=== PATIENT | male | born 1960 | race Caucasian/White ===

== ENCOUNTER 2017-03-03 13:39 | Inpatient (IN) | payer OTHER ==
[~2017-03-03] VITALS: Ht 177.8 cm; Wt 70.4 kg
--- NOTE | 2017-03-03 14:30 | NUR ---
PT VERBALLY CONSENTED TO PHOTOS. PHOTOS TAKEN OF FRONT OF LEGS/HIPS W/ GENITALIA COVERED & OF BACK OF LEGS/BUTTOCKS.
--- NOTE | 2017-03-03 14:48 | NUR ---
PT TO ED FOR EVAL OF RASH TO BILAT LOWER EXTREMITES. SEE SKIN NOTE FOR DESCRITPION OF RASH. PT AWAKE AND ALERT. BREATHING EVEN UNLABORED. STATES RASH STARTED APPROX 3 DAYS AGO WITH "PIMPLES" TO BILAT UPPER THIGH AREAS WITH PAIN TO KNEES. PAIN AND SWELLING GREATER TO L KNEE THAN RIGHTL. PT USES CANE TO WALK PT DENIES FEVERS, NAUSEA, VOMITING OR RECENT ILLNESS. PT PLACED IN ISOLATION. PLACED ON CARDIAC MONITORS. MSE COMPLETED BY DR. BANG.
[2017-03-03 15:15] LABS: PLATELET COUNT 215 x10^3mcL (130-400); RED CELL DISTRIBUTION WIDTH 12.2 % (11.5-14.5)
[2017-03-03 15:16] LABS: BASOPHIL % 0 % (0-2)
--- NOTE | 2017-03-03 15:23 | NUR ---
NON BLANCHABLE RED GALE NOTED STARTING FROM HIPS DOWNS TO BILATERAL LOWER EXTREMITIES. PT DENIES ANY NUCHAL RIGIDITY. NO HYPOTENSION NOTED.
[2017-03-03 15:36] LABS: CALCIUM 8.9 mg/dL (8.5-10.1); CARBON DIOXIDE 27.4 mmol/L (21-32); CHLORIDE SERUM 100 mmol/L (98-107); CREATININE SERUM 0.7 mg/dL (0.7-1.3); GFR1 > 60 mL/min; GLUCOSE SERUM 90 mg/dL (74-106); POTASSIUM SERUM 3.9 mmol/L (3.5-5.1); SODIUM SERUM 137 mmol/L (136-145)
[2017-03-03 15:52] LABS: T3 TOTAL 0.88 ng/mL
--- NOTE | 2017-03-03 15:55 | NUR ---
PT SIGNED CONSENT FOR LUMBAR PUNTURE AND PLACED IN CHART.
[2017-03-03 16:00] LABS: ALBUMIN 3.5 g/dL (3.4-5.0); ALKALINE PHOSPHATASE 94 U/L (46-116); ALT/SGPT 43 U/L (16-63); AST/SGOT 65 U/L (15-37); BILIRUBIN TOTAL 1.86 mg/dL (0.20-1.00); TOTAL PROTEIN, SERUM 7.5 g/dL (6.4-8.2)
--- NOTE | 2017-03-03 16:10 | NUR ---
DR. BANG AT BEDSIDE FOR LUMBAR PUNCTURE.
[2017-03-03 16:20] LABS: ERYTHROCYTE SED RATE 23 mm/hr (0-20)
--- NOTE | 2017-03-03 16:36 | NUR ---
CSF SENT TO LAB, AND FLUID COLLECTED FROM LEFT KNEE TAP (ABOUT 2ML) SENT TO LAB.
[2017-03-03 16:45] LABS: APPEARANCE CSF CLEAR; COLOR CSF COLORLESS; RBC CSF 1 /cumm (0); WBC CSF 0 /cumm (0-5)
[2017-03-03 16:48] LABS: APPEARANCE CSF CLEAR; COLOR CSF COLORLESS; RBC CSF 1 /cumm (0); WBC CSF 0 /cumm (0-5)
[2017-03-03 17:02] LABS: TOTAL PROTEIN CSF 25.7 mg/dL (15-45)
[2017-03-03 17:18] LABS: CK-MB < 0.5 ng/mL (0-3.6); CREATINE KINASE 64 U/L (39-308)
--- NOTE | 2017-03-03 17:23 | NUR ---
REPIORT CALLED TO YESENIA POWELL,. SHE WILL ASSUME CARE PRIMARY RN POST TRANSFER.
[2017-03-03 17:27] LABS: FREE T4 1.08 ng/dL (0.76-1.46); FREE THYROXINE INDEX 2.1 ug/dL (1.4-4.5); T4(THYROXINE) 6.7 ug/dL (4.7-13.3)
[2017-03-03 17:32] LABS: microscopic required? NO
[2017-03-03 17:40] LABS: urine erythrocyte NEGATIVE (NEGATIVE)
[2017-03-03 17:59] LABS: MAGNESIUM 1.9 mg/dL (1.8-2.4)
[2017-03-03 18:01] LABS: CHOLESTEROL/HDL RATIO 2.4
[2017-03-03 18:07] LABS: AMPHETAMINE QUAL UR NONE DETECTED (NEG <=1000)
--- NOTE | 2017-03-03 18:25 | NUR ---
RECEIVED PT RESTING IN BED WITH PRIMARY RN AT BEDSIDE. PT AAOX4 WITH C/O BLE/RT KNEE PAIN 04/06. VS DONE AND MONITOR APPLIED. IVF TO LFA RESUMED BY PRIMARY RN. BREATH SOUNDS CLEAR BILATERALLY. ABDOMEN SOFT WITH ACTIVE BOWEL SOUNDS. PULSES PRESENT WITH 2+ EDEMA TO BLE WITH PETECHIAE PURPLE FLAT RASH NOTED TO BLE. CALL LIGHT WITHIN REACH.
--- NOTE | 2017-03-03 18:38 | NUR ---
AT 1820 - RECEIVED PATIENT FROM ER NURSE. SETTLED IN ROOM, ORIENTED TO SURROUNDINGS AND PLACED ON CARDIAC MONITORING. ADMITTED WITH DX OF SEPSIS, BLE RASH R/O MENINGOCOCCAL. PATIENT IS AWAKE, ALERT AND ORIENTED TO PERSON, PALCE, TIME AND SITUATION. CONVERSING APPROPRIATELLY. RESPIRATIONS REGULAR. AFEBRILE. HISTORY OBTAINED FROM PATIENT. AT 1830 - IV INFUSION OF NS COMMENCED AT 126 ML/HR. PATIENT IS ON DROPLET ISOLATION. CALL LIGHT WITHIN REACH.
[2017-03-03 18:53] VITALS: BP 112/64
[2017-03-03 19:08] VITALS: Ht 177.8 cm; Wt 70.4 kg
--- NOTE | 2017-03-03 20:00 | NUR ---
PT AAO X4 VERBAL C/O OF BLE PAIN 6/10 PER ASSESSMENT, NO DISTRESS LUNGS CTA SATURATING 96% RA, ST IN THE MONITOR NO CP OR PRESSURE TELE # 19, IVF NS INFUSING @ 126CC/HR IV ACCESS @ LFA PATENT NON INFIL, PT REFUSED TO WEAR SCD'S AT THIS TIME, INFORMED BENEFITS OF SCD'S, BLE WITH SCATTERED RASHES DENIES ITCHING ON AIRBORNE ISOL PREC R/O MENINGOCOCCAL DROPLET, DENIES HEADACHE OR DIZZINESS NO NAUSEA OR VOMITING, SHIFT ASSESSMENT INITIATED, ATTENDED NEEDS CALL LIGHT AT REACH, UPDATED CURRENT TX PLAN, CONT TO MONITOR AND PROCEED TO CURRENT PLAN OF CARE.
--- NOTE | 2017-03-03 20:24 | NUR ---
CALLED DR ROSA ASKING FOR DIET ORDER, PT STATED THAT HE DIDNT EAT FOR 2 DAYS MD WILL TALK TO THE RESIDENT FIRST AWAITING FOR ORDERS.
[2017-03-03 20:30] VITALS: BP 138/93
--- NOTE | 2017-03-03 23:00 | NUR ---
PT HAS NEW ORDER FOR ATIVAN PO, REFUSED TO TAKE AT THIS TIME HE WILL CALL LATER IF HE NEEDS IT.
[2017-03-04] VITALS (7 sets, daily range): BP systolic 91–125; BP diastolic 48–79
--- NOTE | 2017-03-04 00:35 | NUR ---
PT WANTED TO TAKE HIS ATIVAN NOW, MEDS GIVEN INDICATED, PT STATED THAT SHE'S TAKING ATIVAN BEFORE BUT HE STOP IT BECAUSE IT MAKES HIM DIZZY BUT HE WILL TRY IT AGAIN TODAY FOR ANXIETY, CONT TO MONITOR.
[2017-03-04 05:37] LABS: BASOPHIL % 0.3 % (0-2); PLATELET COUNT 159 x10^3mcL (130-400)
[2017-03-04 05:48] LABS: CALCIUM 7.9 mg/dL (8.5-10.1); CARBON DIOXIDE 27.7 mmol/L (21-32); CHLORIDE SERUM 107 mmol/L (98-107); CREATININE SERUM 0.5 mg/dL (0.7-1.3); GFR1 > 60 mL/min; GLUCOSE SERUM 82 mg/dL (74-106); MAGNESIUM 1.9 mg/dL (1.8-2.4); PHOSPHOROUS 3.1 mg/dL (2.5-4.9); POTASSIUM SERUM 3.7 mmol/L (3.5-5.1); SODIUM SERUM 140 mmol/L (136-145)
--- NOTE | 2017-03-04 06:39 | NUR ---
BLE STILL WITH PURPLISH RED FLAT RASHES, DENIES ITCHING, NO C/O SOB NOR DISTRESS, IVF INFUSING WELL DUE MEDS GIVEN, PT NPO FOR ORDERED U/S, CONT TO MONITOR.
--- NOTE | 2017-03-04 07:44 | NUR ---
RECEIVED SLEEPING BUT AROUSABLE, IN NO ACUTE RESP. DISTRESS. VS WNL. IVF INFUSING WELL AND SITE CLEAR. NO C/O PAIN OR DISCOMFORT AT THIS TIME. CALL LIGHT WITHIN REACH. WILL CONTINUE W/PLAN OF CARE.
--- NOTE | 2017-03-04 08:18 | NUR ---
PT C/O KNEE PAIN, MEDICATED WITH MORPHINE IVP PER ORDER.
--- NOTE | 2017-03-04 13:31 | NUR ---
DR. SKELTON IN TO PERFORM SKIN BIOPSY. EXPLAINED THE PROCEDURE TO PT, QUESTIONS AND CONCERNS ADRRESSED. PT SIGNED CONSENT. GETTING READY FOR PROCEDURE.
--- NOTE | 2017-03-04 13:41 | NUR ---
BIOPSY OF THE SKIN RASH TO LT INNER THIGH COMPLETED. PT TOLERATED WELL, SAMPLE TO BE SENT TO LAB. SKIN SITE WITH SUTURE INTACT, COVERED WITH NON ATHERENT BANDAID. PT IN NO DISTRESS, DENIES PAIN OR DISCOMFORT AT THIS TIME. VSS.WILL CONTINUE TO MONITOR.
--- NOTE | 2017-03-04 19:30 | NUR ---
PT IS ALERT AND ORIENTED.PLEASANT AND COOPERATIVE.CLEAR LUNG ON AUSCULTATIONS BILATERALLY UPPER AND LOWER BASES.02SAT 97%. AMBULATES WITH CANE. STILL HAS IV NS AT 126 ML PER HOUR INFUSING WELL IN THE LEFT FOREARM. ANTOHER HEPLOCK IV IN THE RIGHT FOREARM. STILL GETTING SOLUMEDROL FOR THE RED RASHES BOTH LOWER EXTREMITIES. GETTING ATIVAN 1MG PO. WELL MONITOR.
--- NOTE | 2017-03-04 19:35 | NUR ---
PT REMAINS IN NO DISTRESS. AWAKE, ALERT AND ORIENTED. VS STABLE, NO C/O PAIN OR DISCOMFORT AT THIS TIME. IVF INFUSING WELL AND SITE CLEAR. CALL LIGHT WITHIN REACH. WILL BE ENSORED TO INCOMING SHIFT.
--- NOTE | 2017-03-05 06:20 | NUR ---
PT IS RESTING. NOTED LAST NIGHT HE BECAME RESTLESS AND DEMAND THAT HE WILL BE FREE FROM IV BECAUSE IT ON HIS WAY AND BECAME TROUBLED WITH IT. PT ALSO VERBALIZED THAT HE HAD A BAD DREAM. AND THAT HIS HOUSE IS JUST NEAR HIS BED. NOTED THAT SHE IS TAKING ATIVAN PO FOR ETOH PROTOCOL. STILL HAS IV NS AT 75 ML PER HOUR. WILL GIVE REPORT TO DAY SHIFT RN.
[2017-03-05 06:23] VITALS: BP 107/67
[2017-03-05 06:43] LABS: CALCIUM 8.6 mg/dL (8.5-10.1); CARBON DIOXIDE 29.3 mmol/L (21-32); CHLORIDE SERUM 106 mmol/L (98-107); CREATININE SERUM 0.6 mg/dL (0.7-1.3); GFR1 > 60 mL/min; GLUCOSE SERUM 102 mg/dL (74-106); MAGNESIUM 1.8 mg/dL (1.8-2.4); PHOSPHOROUS 2.9 mg/dL (2.5-4.9); POTASSIUM SERUM 3.6 mmol/L (3.5-5.1); SODIUM SERUM 143 mmol/L (136-145)
[2017-03-05 06:59] LABS: BASOPHIL % 0.1 % (0-2); PLATELET COUNT 187 x10^3mcL (130-400)
--- NOTE | 2017-03-05 07:32 | NUR ---
RECEIVED SLEEPY BUT AROUSABLE, NO RESP. DISTRESS NOTED. NO C/O PAIN OR DISCOMFORT. IVF INFUSING WELL AND SITE CLEAR. CALL LIGHT WITHIN REACH. WILL CONTINUE W/PLAN OF CARE.
[2017-03-05 09:04] VITALS: BP 112/70
[2017-03-05 09:36] LABS: RAPID PLASMA REAGIN Non Reactive (Non Reactive)
[2017-03-05 13:24] VITALS: BP 116/69
[2017-03-05 17:01] VITALS: BP 116/72
--- NOTE | 2017-03-05 17:06 | NUR ---
TELE DC'D PER ORDER. PT IN NO DISTRESS, WALKING AROUND IN ROOM. DENIES PAIN OR DISCOMFORT.
--- NOTE | 2017-03-05 18:36 | NUR ---
PT REMAINS IN NO DISTRESS, AWAKE AND ALERT. SITTING AT THE EDGE OF THE BED. NO C/O PAIN OR DISCOMFORT AT THIS TIME. HL PATENT. CALL LIGHT REMAINS WITHIN REACH. WILL BE ENDORSED TO INCOMING SHIFT.
--- NOTE | 2017-03-05 19:30 | NUR ---
PT IS ALERT AND ORIENTED. PLEASANT AND COOPERATIVE. LUNGS CLEAR ON AUSCULTATIONS BILATERALLY. PT HAS HEPLOCK IV ON THE RIGHT AND LEFT FOREARM. NO MORE IV FLUIDS. STILL HAS ALL THE RASHES OVER HIS LEGS, THIGHS. PELVIC AREAS. ITS NOT ITCHING AND NO C/O PAIN. BIOPSY WAS DONE YESTERDAY. BOWEL SOUNDS ACTIVE AND PRESENT. AMBULATORY WITH CANE, WILL MONITOR.
--- NOTE | 2017-03-05 21:27 | NUR ---
PT WAS HALLUCINATING VERY BAD, SEEING BAT IN THE CEILING. DR. CEVALLOS MADE AWARE AND MEDICATED WITH ATIVAN 1MG PO.WILL MONITOR.
[2017-03-05 21:31] VITALS: BP 113/67
--- NOTE | 2017-03-06 04:29 | NUR ---
AFTER TAKING THE ATIVAN LAST NIGHT, THE PT WAS ABLE TO SLEEP. NOTED HE WAS NOT SEEING THINGS IN THE ROOM ANYMORE. WILL CONTINUE TO MONITOR.
[2017-03-06 05:10] VITALS: BP 119/70
[2017-03-06 06:37] LABS: BASOPHIL % 0.3 % (0-2); PLATELET COUNT 187 x10^3mcL (130-400); RED CELL DISTRIBUTION WIDTH 12.3 % (11.5-14.5)
[2017-03-06 07:09] LABS: CALCIUM 8.3 mg/dL (8.5-10.1); CARBON DIOXIDE 29.5 mmol/L (21-32); CHLORIDE SERUM 109 mmol/L (98-107); CREATININE SERUM 0.6 mg/dL (0.7-1.3); GFR1 > 60 mL/min; GLUCOSE SERUM 99 mg/dL (74-106); MAGNESIUM 1.7 mg/dL (1.8-2.4); POTASSIUM SERUM 3.2 mmol/L (3.5-5.1); SODIUM SERUM 146 mmol/L (136-145)
--- NOTE | 2017-03-06 08:00 | NUR ---
ASSESMENT MADE PT AOX4 HR WNL CIRCULATION WNL RR EVEN AND UNLABORED BOWEL SOUND ACTIVE PT AMBULATES WITH CANE, CONTINENT, SKIN LOWER HALF HAS RED RASH, PT DENIES PAIN AT THE MOMENT IV PATENT AND INTACT CALL LIGHT WITH IN REACH WILL CONTINUE TO MONITOR FOR CHANGES
--- NOTE | 2017-03-06 08:16 | NUR ---
AM ROUNDS DONE BY DR. GARCIA AND MEDICAL TEAM. PLAN TO CONT. WITH CURRENT TX. POSSIBLE DC THIS PM. PT AGREED WITH PLAN.
[2017-03-06] MEDS ORDERED: PREDNISONE50 MG PO (14:46)
[2017-03-06] MEDS ORDERED: FOL1 PO (14:48)
[2017-03-06] MEDS ORDERED: THERA TABS1 TAB PO (14:49)
[2017-03-06] MEDS ORDERED: THI100 PO (14:49)
[2017-03-06] MEDS ORDERED: ATIVAN1 MG PO (14:50)
[2017-03-06 15:14] VITALS: BP 119/70
--- NOTE | 2017-03-06 15:36 | NUR ---
PT WILL BE DC'D HOME THIS PM, ECHO IN PROGRESS. WAITING FOR FAMILY
--- NOTE | 2017-03-06 18:03 | NUR ---
PT DC'D HOME IN NO DISTRESS, AWAKE, ALERT AND ORIENTED. NO CHANGES IN VS. HL REMOVED AND SITE CLEAR. DC INSTRUCTIONS REVIEWED WITH PT AND FAMILY. RX GIVEN. PT DENIES PAIN OR DISCOMFORT AT THE TIME OF DC. PERSONAL BELONGINGS TAKEN HOME.
== END 2017-03-06 17:41 | disposition home or self-care (01) | DRG 607 ==
LOC: ED 13:39 → DU 16:53 → MU 03-05 15:30
PROVIDERS: Family Medicine; Specialist; ADMIT Family Medicine
PROC: 009U3ZX Drainage of Spinal Canal, Percutaneous Approach, Diagnostic (ICD-10-PCS; principal; 2017-03-03)
PROC: 0S9D3ZZ Drainage of Left Knee Joint, Percutaneous Approach (ICD-10-PCS; 2017-03-03)
PROC: 0HBJXZX Excision of Left Upper Leg Skin, External Approach, Diagnostic (ICD-10-PCS; 2017-03-04)
DX: L95.8 Other vasculitis limited to the skin (principal); B19.10 Unspecified viral hepatitis B without hepatic coma; E87.6 Hypokalemia; E83.42 Hypomagnesemia; F10.10 Alcohol abuse, uncomplicated; I77.6 Arteritis, unspecified; Z68.24 Body mass index [BMI] 24.0-24.9, adult
CPT/HCPCS: 36600; 80307; 83880; 84439; 86788; 86789; 87804; G0480; J0133; J1885; J2001; J2270; J2405; J2543; J2930; J3010; J7030; Q0092

== ENCOUNTER 2017-09-10 22:45 | Emergency (ER) | payer OTHER, MEDICAID ==
[~2017-09-10] VITALS: Ht 175.3 cm; Wt 74.8 kg
[~2017-09-10 22:45] MED LIST: ATIVAN1 MG PO; FOL1 PO; PREDNISONE50 MG PO; THERA TABS1 TAB PO; THI100 PO
[2017-09-11 00:23] VITALS: BP 129/110
== END 2017-09-11 00:23 | disposition home or self-care (01) ==
LOC: ED 22:45
DX: S01.112A Laceration without foreign body of left eyelid and periocular area, initial encounter (principal); Y08.89XA Assault by other specified means, initial encounter; Y93.89 Activity, other specified; Y99.8 Other external cause status; Y92.89 Other specified places as the place of occurrence of the external cause

== ENCOUNTER → 2018-02-08 | Outpatient (CLI) | payer OTHER | END | disposition home or self-care (01) | LOC: US 14:14 | PROC: B54DZZZ Ultrasonography of Bilateral Lower Extremity Veins (ICD-10-PCS; principal; 2018-02-08) | PROC: B44HZZZ Ultrasonography of Bilateral Lower Extremity Arteries (ICD-10-PCS; 2018-02-08) | DX: I87.8 Other specified disorders of veins (principal) | CPT/HCPCS: Q0092 ==

== ENCOUNTER 2018-02-09 21:14 | Emergency (ER) | payer OTHER ==
[~2018-02-09] VITALS: Ht 170.2 cm; Wt 73.9 kg
[2018-02-09 21:23] VITALS: Ht 170.2 cm; Wt 73.9 kg
[2018-02-09 22:19] LABS: BASOPHIL % 0.6 % (0-2); PLATELET COUNT 172 x10^3mcL (130-400); RED CELL DISTRIBUTION WIDTH 13.2 % (11.5-14.5)
[2018-02-09 22:22] LABS: CALCIUM 8.5 mg/dL (8.5-10.1); CARBON DIOXIDE 24.6 mmol/L (21-32); CHLORIDE SERUM 98 mmol/L (98-107); CREATININE SERUM 0.6 mg/dL (0.7-1.3); GFR1 > 60 mL/min; GLUCOSE SERUM 119 mg/dL (74-106); POTASSIUM SERUM 3.3 mmol/L (3.5-5.1); SODIUM SERUM 136 mmol/L (136-145)
[2018-02-09 22:26] LABS: ALBUMIN 3.8 g/dL (3.4-5.0); ALKALINE PHOSPHATASE 129 U/L (46-116); ALT/SGPT 80 U/L (16-63); AST/SGOT 93 U/L (15-37); BILIRUBIN TOTAL 0.4 mg/dL (0.20-1.00); LIPASE 236 IU/L (73-393); TOTAL PROTEIN, SERUM 7.9 g/dL (6.4-8.2)
[2018-02-10 00:37] VITALS: BP 123/77
== END 2018-02-10 00:39 | disposition home or self-care (01) ==
LOC: ED 21:14
PROVIDERS: Emergency Medicine
DX: F10.129 Alcohol abuse with intoxication, unspecified (principal); K29.20 Alcoholic gastritis without bleeding; F41.0 Panic disorder [episodic paroxysmal anxiety]; G62.9 Polyneuropathy, unspecified; F32.9 Major depressive disorder, single episode, unspecified
CPT/HCPCS: G0480; J2765; J3490; J7030; Q0092

== ENCOUNTER 2018-04-29 01:31 | Inpatient (IN) | payer OTHER ==
[~2018-04-29] VITALS: Ht 177.8 cm; Wt 70.8 kg
[2018-04-29 01:44] VITALS: Ht 177.8 cm; Wt 70.8 kg
[2018-04-29 02:41] LABS: microscopic required? NO
[2018-04-29 02:54] LABS: BASOPHIL % 0.2 % (0-2); PLATELET COUNT 254 x10^3mcL (130-400); RED CELL DISTRIBUTION WIDTH 11.7 % (11.5-14.5)
[2018-04-29 02:57] LABS: AMPHETAMINE QUAL UR NONE DETECTED (NEG <=1000)
[2018-04-29 02:58] LABS: CALCIUM 8.2 mg/dL (8.5-10.1); CARBON DIOXIDE 23.9 mmol/L (21-32); CHLORIDE SERUM 107 mmol/L (98-107); CREATININE SERUM 0.6 mg/dL (0.7-1.3); GFR1 > 60 mL/min; GLUCOSE SERUM 93 mg/dL (74-106); SODIUM SERUM 143 mmol/L (136-145)
[2018-04-29 03:04] LABS: UA SPECIFIC GRAVITY <=1.005 (1.005-1.035); urine erythrocyte NEGATIVE (NEGATIVE)
[2018-04-29 03:05] LABS: ALKALINE PHOSPHATASE 87 U/L (46-116); ALT/SGPT 48 U/L (16-63); AST/SGOT 67 U/L (15-37); BILIRUBIN TOTAL 0.41 mg/dL (0.20-1.00); TOTAL PROTEIN, SERUM 7.6 g/dL (6.4-8.2)
[2018-04-29 05:30] LABS: T4(THYROXINE) 8.6 ug/dL (4.7-13.3)
[2018-04-29 05:46] LABS: T3 TOTAL 1.15 ng/mL
[2018-04-29 05:50] LABS: FREE T4 1.08 ng/dL (0.76-1.46)
[2018-04-29 05:57] LABS: CHOLESTEROL/HDL RATIO 3.7; MAGNESIUM 1.9 mg/dL (1.8-2.4); PHOSPHOROUS 3.5 mg/dL (2.5-4.9)
[2018-04-29 07:51] VITALS: BP 138/97
[2018-04-29 14:33] VITALS: BP 108/65
[2018-04-29 19:17] VITALS: BP 122/73
[2018-04-30 06:35] LABS: BASOPHIL % 0.5 % (0-2); PLATELET COUNT 176 x10^3mcL (130-400); RED CELL DISTRIBUTION WIDTH 12.4 % (11.5-14.5)
[2018-04-30 06:40] VITALS: BP 112/76
[2018-04-30 06:51] LABS: CALCIUM 8.4 mg/dL (8.5-10.1); CARBON DIOXIDE 27.5 mmol/L (21-32); CHLORIDE SERUM 114 mmol/L (98-107); CREATININE SERUM 0.6 mg/dL (0.7-1.3); GFR1 > 60 mL/min; GLUCOSE SERUM 77 mg/dL (74-106); MAGNESIUM 1.9 mg/dL (1.8-2.4); POTASSIUM SERUM 3.3 mmol/L (3.5-5.1); SODIUM SERUM 145 mmol/L (136-145)
[2018-04-30 10:08] VITALS: BP 107/63
[2018-04-30 12:52] VITALS: BP 125/74
[2018-04-30 17:13] VITALS: BP 121/70
[2018-04-30 20:42] VITALS: BP 120/69
[2018-05-01 05:39] VITALS: BP 137/82
[2018-05-01 09:22] VITALS: BP 111/67
[2018-05-01 13:54] VITALS: BP 112/68
[2018-05-01 17:43] VITALS: BP 114/72
[2018-05-02 05:26] VITALS: BP 121/68
[2018-05-02 06:08] LABS: BASOPHIL % 0.6 % (0-2); PLATELET COUNT 182 x10^3mcL (130-400)
[2018-05-02 06:11] LABS: CALCIUM 8.4 mg/dL (8.5-10.1); CARBON DIOXIDE 26.7 mmol/L (21-32); CHLORIDE SERUM 109 mmol/L (98-107); CREATININE SERUM 0.5 mg/dL (0.7-1.3); GFR1 > 60 mL/min; GLUCOSE SERUM 90 mg/dL (74-106); MAGNESIUM 1.6 mg/dL (1.8-2.4); PHOSPHOROUS 4.2 mg/dL (2.5-4.9); POTASSIUM SERUM 3.4 mmol/L (3.5-5.1); SODIUM SERUM 145 mmol/L (136-145)
[2018-05-02 09:55] VITALS: BP 117/69
[2018-05-02] MEDS ORDERED: LEXAPRO10 MG PO (13:44)
[2018-05-02] MEDS ORDERED: THI100 PO (13:45)
[2018-05-02] MEDS ORDERED: FOL1 PO (13:45)
[2018-05-02] MEDS ORDERED: LORAZEPAM0.5 MG PO (13:46)
[2018-05-02 18:31] VITALS: BP 100/57
== END 2018-05-02 19:25 | disposition home or self-care (01) | DRG 896 ==
LOC: ED 01:31 → DU 04:55
PROVIDERS: Emergency Medicine; Family Medicine
DX: F10.129 Alcohol abuse with intoxication, unspecified (principal); G92 Toxic encephalopathy; F33.1 Major depressive disorder, recurrent, moderate; R45.851 Suicidal ideations; G62.9 Polyneuropathy, unspecified; E87.6 Hypokalemia; Y90.9 Presence of alcohol in blood, level not specified; E83.42 Hypomagnesemia; E87.8 Other disorders of electrolyte and fluid balance, not elsewhere classified; S50.812A Abrasion of left forearm, initial encounter; S50.811A Abrasion of right forearm, initial encounter; X78.1XXA Intentional self-harm by knife, initial encounter; Y92.018 Other place in single-family (private) house as the place of occurrence of the external cause; Z68.29 Body mass index [BMI] 29.0-29.9, adult; Z86.19 Personal history of other infectious and parasitic diseases
CPT/HCPCS: 83880; 84439; G0480; J1200; J2060; J3475; J3490; J7030; Q0092; Q0163

== ENCOUNTER 2018-05-05 03:00 | Emergency (ER) | payer OTHER ==
[~2018-05-05] VITALS: Ht 177.8 cm; Wt 74.8 kg
[~2018-05-05 03:00] MED LIST changes: +LEXAPRO10 MG PO; +LORAZEPAM0.5 MG PO
[2018-05-05 03:06] VITALS: Ht 177.8 cm; Wt 74.8 kg
[2018-05-05 03:39] LABS: microscopic required? NO
[2018-05-05 03:55] LABS: BASOPHIL % 0.5 % (0-2); PLATELET COUNT 216 x10^3mcL (130-400)
[2018-05-05 03:58] LABS: CALCIUM 8.2 mg/dL (8.5-10.1); CARBON DIOXIDE 26.8 mmol/L (21-32); CHLORIDE SERUM 103 mmol/L (98-107); CREATININE SERUM 0.5 mg/dL (0.7-1.3); GFR1 > 60 mL/min; GLUCOSE SERUM 83 mg/dL (74-106); POTASSIUM SERUM 3.8 mmol/L (3.5-5.1); SODIUM SERUM 140 mmol/L (136-145)
[2018-05-05 03:58] LABS: UA SPECIFIC GRAVITY <=1.005 (1.005-1.035); urine erythrocyte NEGATIVE (NEGATIVE)
[2018-05-05 04:03] LABS: ALBUMIN 3.6 g/dL (3.4-5.0); ALKALINE PHOSPHATASE 84 U/L (46-116); ALT/SGPT 50 U/L (16-63); AST/SGOT 78 U/L (15-37); BILIRUBIN TOTAL 0.31 mg/dL (0.20-1.00); TOTAL PROTEIN, SERUM 7.3 g/dL (6.4-8.2)
[2018-05-05 04:07] LABS: AMPHETAMINE QUAL UR NONE DETECTED (NEG <=1000)
[2018-05-05 16:03] VITALS: BP 134/79
== END 2018-05-05 16:03 | disposition short-term general hospital (02) ==
LOC: ED 03:00
PROVIDERS: Specialist
DX: F10.129 Alcohol abuse with intoxication, unspecified (principal); R45.851 Suicidal ideations
CPT/HCPCS: 83880; 90715; G0480

== ENCOUNTER → 2018-05-23 | Emergency (ER) | payer OTHER ==
[~2018-05-23] VITALS: Ht 177.8 cm; Wt 74.8 kg
[2018-05-23 21:56] VITALS: Ht 177.8 cm; Wt 74.8 kg
[2018-05-23 22:47] LABS: BASOPHIL % 0.4 % (0-2); PLATELET COUNT 215 x10^3mcL (130-400); RED CELL DISTRIBUTION WIDTH 12.5 % (11.5-14.5)
[2018-05-23 23:06] LABS: CALCIUM 8.1 mg/dL (8.5-10.1); CARBON DIOXIDE 26.3 mmol/L (21-32); CHLORIDE SERUM 102 mmol/L (98-107); CREATININE SERUM 0.6 mg/dL (0.7-1.3); GFR1 > 60 mL/min; GLUCOSE SERUM 83 mg/dL (74-106); POTASSIUM SERUM 3.3 mmol/L (3.5-5.1); SODIUM SERUM 137 mmol/L (136-145)
[2018-05-23 23:11] LABS: AMPHETAMINE QUAL UR NONE DETECTED (See below)
[2018-05-23 23:13] LABS: ALBUMIN 3.5 g/dL (3.4-5.0); ALKALINE PHOSPHATASE 106 U/L (46-116); ALT/SGPT 39 U/L (16-63); AST/SGOT 47 U/L (15-37); BILIRUBIN TOTAL 0.42 mg/dL (0.20-1.00); TOTAL PROTEIN, SERUM 7.1 g/dL (6.4-8.2)
[2018-05-24 18:23] VITALS: BP 104/74
== END ==
LOC: ED 21:51
PROVIDERS: Emergency Medicine
DX: S50.812A Abrasion of left forearm, initial encounter (principal); S50.811A Abrasion of right forearm, initial encounter; F10.129 Alcohol abuse with intoxication, unspecified; R45.851 Suicidal ideations; X58.XXXA Exposure to other specified factors, initial encounter; Y93.89 Activity, other specified; Y92.89 Other specified places as the place of occurrence of the external cause; Y99.8 Other external cause status
CPT/HCPCS: 90715; G0480; J2405; J3486; J7030

== ENCOUNTER 2018-07-11 23:44 | Emergency (ER) | payer OTHER ==
[~2018-07-11] VITALS: Ht 177.8 cm; Wt 72.6 kg
[2018-07-11 23:57] VITALS: Ht 177.8 cm; Wt 72.6 kg
[2018-07-12 00:55] LABS: BASOPHIL % 0.4 % (0-2); PLATELET COUNT 206 x10^3mcL (130-400); RED CELL DISTRIBUTION WIDTH 13.6 % (11.5-14.5)
[2018-07-12 01:08] LABS: CALCIUM 7.9 mg/dL (8.5-10.1); CARBON DIOXIDE 25.5 mmol/L (21-32); CHLORIDE SERUM 103 mmol/L (98-107); CREATININE SERUM 0.6 mg/dL (0.7-1.3); GFR1 > 60 mL/min; GLUCOSE SERUM 87 mg/dL (74-106); POTASSIUM SERUM 3.6 mmol/L (3.5-5.1); SODIUM SERUM 137 mmol/L (136-145)
[2018-07-12 01:14] LABS: AMPHETAMINE QUAL UR NONE DETECTED (See below)
[2018-07-12 01:16] LABS: ALBUMIN 3.4 g/dL (3.4-5.0); ALKALINE PHOSPHATASE 78 U/L (46-116); ALT/SGPT 25 U/L (16-63); AST/SGOT 41 U/L (15-37); BILIRUBIN TOTAL 0.47 mg/dL (0.20-1.00); TOTAL PROTEIN, SERUM 7.2 g/dL (6.4-8.2)
[2018-07-12 12:14] VITALS: BP 131/70
== END 2018-07-12 12:14 | disposition home or self-care (01) ==
LOC: ED 23:44
PROVIDERS: Emergency Medicine
DX: S51.832A Puncture wound without foreign body of left forearm, initial encounter (principal); S51.831A Puncture wound without foreign body of right forearm, initial encounter; T14.91XA Suicide attempt, initial encounter; F10.10 Alcohol abuse, uncomplicated; F32.9 Major depressive disorder, single episode, unspecified; X78.8XXA Intentional self-harm by other sharp object, initial encounter; Y93.89 Activity, other specified; Y92.89 Other specified places as the place of occurrence of the external cause; Y99.8 Other external cause status
CPT/HCPCS: G0480; J1200; J3411; J3475; J3490; J7030

== ENCOUNTER 2018-07-14 00:19 | Emergency (ER) | payer OTHER ==
[~2018-07-14] VITALS: Ht 177.8 cm; Wt 73.9 kg
[2018-07-14 00:28] VITALS: Ht 177.8 cm; Wt 73.9 kg
[2018-07-14 00:54] LABS: BASOPHIL % 0.2 % (0-2); PLATELET COUNT 203 x10^3mcL (130-400); RED CELL DISTRIBUTION WIDTH 13.9 % (11.5-14.5)
[2018-07-14 01:08] LABS: CALCIUM 8.1 mg/dL (8.5-10.1); CARBON DIOXIDE 23.7 mmol/L (21-32); CHLORIDE SERUM 101 mmol/L (98-107); CREATININE SERUM 0.5 mg/dL (0.7-1.3); GFR1 > 60 mL/min; GLUCOSE SERUM 94 mg/dL (74-106); POTASSIUM SERUM 3.5 mmol/L (3.5-5.1); SODIUM SERUM 134 mmol/L (136-145)
[2018-07-14 01:12] LABS: AMPHETAMINE QUAL UR NONE DETECTED (See below)
[2018-07-14 01:13] LABS: ALBUMIN 3.5 g/dL (3.4-5.0); ALKALINE PHOSPHATASE 85 U/L (46-116); ALT/SGPT 28 U/L (16-63); AST/SGOT 49 U/L (15-37); BILIRUBIN TOTAL 0.52 mg/dL (0.20-1.00); TOTAL PROTEIN, SERUM 7.4 g/dL (6.4-8.2)
[2018-07-14 16:38] VITALS: BP 135/74
== END 2018-07-14 17:02 | disposition home or self-care (01) ==
LOC: ED 00:19
PROVIDERS: Specialist
DX: F10.129 Alcohol abuse with intoxication, unspecified (principal); F32.9 Major depressive disorder, single episode, unspecified; R45.851 Suicidal ideations; Y90.0 Blood alcohol level of less than 20 mg/100 ml
CPT/HCPCS: G0480

== ENCOUNTER → 2018-09-25 | Outpatient (CLI) | payer OTHER ==
[2018-09-25 15:57] LABS: ALBUMIN 3.6 g/dL (3.4-5.0); ALKALINE PHOSPHATASE 109 U/L (46-116); ALT/SGPT 45 U/L (16-63); AST/SGOT 85 U/L (15-37); BILIRUBIN TOTAL 1.12 mg/dL (0.20-1.00); CALCIUM 8.6 mg/dL (8.5-10.1); CARBON DIOXIDE 27.6 mmol/L (21-32); CHLORIDE SERUM 105 mmol/L (98-107); CREATININE SERUM 0.7 mg/dL (0.7-1.3); GFR1 > 60 mL/min; GLUCOSE SERUM 105 mg/dL (74-106); POTASSIUM SERUM 4.3 mmol/L (3.5-5.1); SODIUM SERUM 139 mmol/L (136-145); TOTAL PROTEIN, SERUM 7.8 g/dL (6.4-8.2)
== END | disposition home or self-care (01) ==
LOC: CT 03:00
PROC: BW21ZZZ Computerized Tomography (CT Scan) of Abdomen and Pelvis (ICD-10-PCS; principal; 2018-09-25)
DX: F10.10 Alcohol abuse, uncomplicated (principal); F32.9 Major depressive disorder, single episode, unspecified; Z86.19 Personal history of other infectious and parasitic diseases

== ENCOUNTER 2018-12-01 17:45 | Emergency (ER) | payer OTHER ==
[~2018-12-01] VITALS: Ht 175.3 cm; Wt 72.6 kg
[2018-12-01 18:21] VITALS: Ht 175.3 cm; Wt 72.6 kg
[2018-12-01 19:13] LABS: BASOPHIL % 0.5 % (0-2); PLATELET COUNT 161 x10^3mcL (130-400); RED CELL DISTRIBUTION WIDTH 12.9 % (11.5-14.5)
[2018-12-01 19:24] LABS: CALCIUM 7.9 mg/dL (8.5-10.1); CARBON DIOXIDE 25.5 mmol/L (21-32); CHLORIDE SERUM 97 mmol/L (98-107); CREATININE SERUM 0.7 mg/dL (0.7-1.3); GFR1 > 60 mL/min; GLUCOSE SERUM 87 mg/dL (74-106); POTASSIUM SERUM 3.9 mmol/L (3.5-5.1); SODIUM SERUM 132 mmol/L (136-145)
[2018-12-01 19:30] LABS: ALBUMIN 3.6 g/dL (3.4-5.0); ALKALINE PHOSPHATASE 74 U/L (46-116); ALT/SGPT 50 U/L (16-63); AST/SGOT 73 U/L (15-37); BILIRUBIN TOTAL 0.43 mg/dL (0.20-1.00); TOTAL PROTEIN, SERUM 7.1 g/dL (6.4-8.2)
[2018-12-01 20:43] LABS: AMPHETAMINE QUAL UR NONE DETECTED (See below)
[2018-12-02 14:04] VITALS: BP 130/72
== END 2018-12-02 14:04 ==
LOC: ED 17:45
PROVIDERS: Emergency Medicine
DX: T43.221A Poisoning by selective serotonin reuptake inhibitors, accidental (unintentional), initial encounter (principal); T42.4X1A Poisoning by benzodiazepines, accidental (unintentional), initial encounter; R45.851 Suicidal ideations; F10.129 Alcohol abuse with intoxication, unspecified; F41.9 Anxiety disorder, unspecified; F32.9 Major depressive disorder, single episode, unspecified; F19.10 Other psychoactive substance abuse, uncomplicated; Y92.89 Other specified places as the place of occurrence of the external cause
CPT/HCPCS: 36415; G0480

== ENCOUNTER 2018-12-19 20:14 | Emergency (ER) | payer OTHER ==
[~2018-12-19] VITALS: Ht 177.8 cm; Wt 68.0 kg
[2018-12-19 20:25] VITALS: Ht 177.8 cm; Wt 68.0 kg
[2018-12-19 21:15] LABS: BASOPHIL % 0.5 % (0-2); PLATELET COUNT 223 x10^3mcL (130-400); RED CELL DISTRIBUTION WIDTH 13.3 % (11.5-14.5)
[2018-12-19 21:24] LABS: CALCIUM 8.3 mg/dL (8.5-10.1); CHLORIDE SERUM 104 mmol/L (98-107); CREATININE SERUM 0.6 mg/dL (0.7-1.3); GFR1 > 60 mL/min; GLUCOSE SERUM 76 mg/dL (74-106); POTASSIUM SERUM 3.3 mmol/L (3.5-5.1); SODIUM SERUM 141 mmol/L (136-145)
[2018-12-19 21:28] LABS: ALBUMIN 3.3 g/dL (3.4-5.0); ALKALINE PHOSPHATASE 122 U/L (46-116); ALT/SGPT 20 U/L (16-63); AMYLASE 63 U/L (25-115); AST/SGOT 42 U/L (15-37); BILIRUBIN TOTAL 0.39 mg/dL (0.20-1.00); LIPASE 138 IU/L (73-393); MAGNESIUM 1.8 mg/dL (1.8-2.4); TOTAL PROTEIN, SERUM 7.2 g/dL (6.4-8.2)
[2018-12-20 00:20] LABS: AMPHETAMINE QUAL UR NONE DETECTED (See below)
[2018-12-20 17:06] VITALS: BP 112/73
== END 2018-12-20 17:06 ==
LOC: ED 20:14
PROVIDERS: Emergency Medicine
DX: R45.851 Suicidal ideations (principal); S00.03XA Contusion of scalp, initial encounter; F10.129 Alcohol abuse with intoxication, unspecified; F32.9 Major depressive disorder, single episode, unspecified; Z86.19 Personal history of other infectious and parasitic diseases; X58.XXXA Exposure to other specified factors, initial encounter; Y93.89 Activity, other specified; Y92.89 Other specified places as the place of occurrence of the external cause; Y99.8 Other external cause status
CPT/HCPCS: G0480; J1630; J2060; J3411; J3475; J3490; J7030

== ENCOUNTER 2019-12-19 18:04 | Emergency (ER) | payer OTHER ==
[~2019-12-19] VITALS: Ht 165.1 cm; Wt 74.8 kg
[2019-12-19 18:18] VITALS: Ht 165.1 cm; Wt 74.8 kg
[2019-12-19 19:30] LABS: BASOPHIL % 0.3 % (0-2); PLATELET COUNT 189 x10^3mcL (130-400); RED CELL DISTRIBUTION WIDTH 12.8 % (11.5-14.5)
[2019-12-19 19:41] LABS: CARBON DIOXIDE 24.4 mmol/L (21-32); CHLORIDE SERUM 98 mmol/L (98-107); CREATININE SERUM 0.6 mg/dL (0.7-1.3); GFR1 > 60 mL/min; GLUCOSE SERUM 78 mg/dL (74-106); POTASSIUM SERUM 4.1 mmol/L (3.5-5.1); SODIUM SERUM 134 mmol/L (136-145)
[2019-12-19 19:48] LABS: ALBUMIN 3.6 g/dL (3.4-5.0); ALKALINE PHOSPHATASE 95 U/L (46-116); ALT/SGPT 30 U/L (16-63); AST/SGOT 43 U/L (15-37); BILIRUBIN TOTAL 0.49 mg/dL (0.20-1.00); CALCIUM 8.2 mg/dL (8.5-10.1); TOTAL PROTEIN, SERUM 7.6 g/dL (6.4-8.2)
[2019-12-19 20:56] LABS: AMPHETAMINE QUAL UR NONE DETECTED (See below)
[2019-12-20 07:15] VITALS: BP 120/84
== END 2019-12-20 09:44 | disposition home or self-care (01) ==
LOC: ED 18:04
PROVIDERS: Emergency Medicine
DX: R45.851 Suicidal ideations (principal); F10.129 Alcohol abuse with intoxication, unspecified; F32.9 Major depressive disorder, single episode, unspecified; S60.812A Abrasion of left wrist, initial encounter; S60.811A Abrasion of right wrist, initial encounter; X58.XXXA Exposure to other specified factors, initial encounter; Y93.89 Activity, other specified; Y92.89 Other specified places as the place of occurrence of the external cause; Y99.8 Other external cause status; Y90.8 Blood alcohol level of 240 mg/100 ml or more
CPT/HCPCS: 36415; G0480; J1200; J1630; J2060

== ENCOUNTER 2020-08-22 20:14 | Emergency (ER) | payer OTHER ==
[~2020-08-22] VITALS: Ht 177.8 cm; Wt 86.2 kg
[2020-08-22 20:23] VITALS: Ht 177.8 cm; Wt 86.2 kg
[2020-08-22 21:56] LABS: BASOPHIL % 0.7 % (0-2); PLATELET COUNT 178 x10^3mcL (130-400); RED CELL DISTRIBUTION WIDTH 12.6 % (11.5-14.5)
[2020-08-22 22:04] LABS: CALCIUM 8.3 mg/dL (8.5-10.1); CARBON DIOXIDE 24.1 mmol/L (21-32); CHLORIDE SERUM 98 mmol/L (98-107); CREATININE SERUM 0.7 mg/dL (0.7-1.3); GFR1 > 60 mL/min; GLUCOSE SERUM 136 mg/dL (74-106); POTASSIUM SERUM 3.6 mmol/L (3.5-5.1); SODIUM SERUM 134 mmol/L (136-145)
[2020-08-22 22:09] LABS: ALBUMIN 3.4 g/dL (3.4-5.0); ALKALINE PHOSPHATASE 80 U/L (46-116); ALT/SGPT 63 U/L (16-63); AST/SGOT 88 U/L (15-37); BILIRUBIN TOTAL 0.5 mg/dL (0.20-1.00); TOTAL PROTEIN, SERUM 7.2 g/dL (6.4-8.2)
[2020-08-23 03:10] VITALS: BP 138/87
== END 2020-08-23 03:10 | disposition home or self-care (01) ==
LOC: ED 20:14
PROVIDERS: Emergency Medicine
DX: F12.129 Cannabis abuse with intoxication, unspecified (principal)
CPT/HCPCS: J2405; Q0092; Q9967

== ENCOUNTER 2020-12-20 17:31 | Emergency (ER) | payer OTHER ==
[~2020-12-20] VITALS: Ht 177.8 cm; Wt 86.2 kg
[2020-12-20 17:37] VITALS: BP 151/84; Ht 177.8 cm; Wt 86.2 kg
== END 2020-12-20 19:22 | disposition home or self-care (01) ==
LOC: ED 17:31
DX: S51.811A Laceration without foreign body of right forearm, initial encounter (principal); F10.10 Alcohol abuse, uncomplicated; X58.XXXA Exposure to other specified factors, initial encounter; Y93.89 Activity, other specified; Y92.89 Other specified places as the place of occurrence of the external cause; Y99.8 Other external cause status